=== PATIENT | female | born 1960 | race Native Hawaiian/Other Pacific Islander ===

== ENCOUNTER 2017-11-05 09:41 | Outpatient (CLI) | payer OTHER ==
[~2017-11-05 09:41] MED LIST: AMBIEN5 MG PO; LISI20TA11 PO
[2017-11-05 10:42] LABS: PLATELET COUNT 294 K/uL (152-353)
[2017-11-05 12:35] LABS: POTASSIUM 3.7 mmol/L (3.6-5.2)
== END 2017-11-05 19:38 | disposition home or self-care (01) ==
LOC: RAD 09:41
PROVIDERS: Emergency Medicine
DX: J40 Bronchitis, not specified as acute or chronic (principal); I10 Essential (primary) hypertension; F41.8 Other specified anxiety disorders; M54.89 Other dorsalgia; G47.09 Other insomnia
CPT/HCPCS: 36415; 80053; 80061; 84443; 85027

== ENCOUNTER 2018-03-02 09:36 | Outpatient (CLI) | payer OTHER ==
[2018-03-02 09:57] LABS: POTASSIUM 4.5 mmol/L (3.6-5.2)
== END 2018-03-02 22:09 | disposition home or self-care (01) ==
LOC: LABW 09:36
PROVIDERS: Physician Assistant Medical
DX: E78.49 Other hyperlipidemia (principal); I10 Essential (primary) hypertension; F41.8 Other specified anxiety disorders
CPT/HCPCS: 36415; 80053; 80061